=== PATIENT | female | born 1995 | race Caucasian/White ===

== ENCOUNTER 2017-02-08 01:04 | Emergency (ER) | payer OTHER ==
[~2017-02-08] VITALS: Ht 149.9 cm; Wt 54.4 kg
[~2017-02-08 01:04] MED LIST: AMOXICILLIN500 M1 PO; MEDROL4 M1 PO; XOPENEX HF0.045 MG/A IH
[2017-02-08 01:06] VITALS: BP 120/72
--- NOTE | 2017-02-08 01:34 | NUR ---
PATIENT AMBULATED TO ER BED 7.
--- NOTE | 2017-02-08 01:38 | NUR ---
PT PRESENT TO ER WITH C/O HEADACHE, FOR 3 DAYS,
--- NOTE | 2017-02-08 01:45 | NUR ---
Patient being evaluated by DR. MAYBERRY at bedside.
[2017-02-08] MEDS ORDERED: diphenhydrAMINE 50 MG/ML VIAL IM ONE (01:50)
[2017-02-08] MEDS ORDERED: PROCHLORPERAZINE 10 MG/2 ML VIAL IM ONE (01:50)
[2017-02-08 02:35] VITALS: BP 116/66
--- NOTE | 2017-02-08 02:35 | NUR ---
Patient discharged with v/s stable. Written and verbal after care instructions given and explained. Patient alert, oriented and verbalized understanding of instructions. Ambulatory with steady gait. All questions addressed prior to discharge. ID band removed. Patient advised to follow up with PMD. Rx of COMPAZINE 10MG PO, BENADRYL ALLERGY 25MG PO given. Patient educated on indication of medication including possible reaction and side effects. Opportunity to ask questions provided and answered.
== END 2017-02-08 02:35 | disposition home or self-care (01) ==
LOC: MED 01:04
DX: J45.909 Unspecified asthma, uncomplicated (principal); R51 Headache
CPT/HCPCS: 81025; 96372; 99284; J0780; J1200

== ENCOUNTER 2017-07-28 21:52 | Emergency (ER) | payer OTHER ==
[~2017-07-28] VITALS: Ht 149.9 cm; Wt 54.4 kg
[2017-07-28 21:54] VITALS: BP 108/61
[2017-07-28 23:38] VITALS: BP 111/68
== END 2017-07-28 23:41 | disposition home or self-care (01) ==
LOC: MED 21:52
DX: N94.6 Dysmenorrhea, unspecified (principal); J45.909 Unspecified asthma, uncomplicated
CPT/HCPCS: 81002; 81025; 99283